=== PATIENT | male | born 1950 | race Caucasian/White ===

== ENCOUNTER 2016-11-04 20:44 | Emergency (ER) | payer MEDICARE ==
[~2016-11-04] VITALS: Ht 193 cm; Wt 72.6 kg
--- NOTE | 2016-11-04 21:25 | Emergency Room Report ---
History of Present Illness General Chief Complaint: Lower Extremity Injury Source: Patient, Medical Record Present Illness HPI Patient is a 66-year-old male who presented after a fall. The patient was reported increased pain and swelling to his right knee. Patient stated that he felt a pop and subsequently was unable to ambulate Patient fell onto his right knee after slipping. He denied loss of consciousness. Allergies: Coded Allergies: No Known Allergies (Unverified , 11/04/16) Patient History Past Medical History: see triage record Reviewed Nursing Documentation: PMH: Agreed, PSxH: Agreed Nursing Documentation-PMH Past Medical History: No History, Except For Review of Systems All Other Systems: negative except mentioned in HPI Physical Exam Vital Signs Date Time Temp Pulse Resp B/P Pulse Ox O2 Delivery O2 Flow Rate FiO2 11/04/16 20:40 98.4 88 16 169/98 100 Room Air General Appearance: well appearing, no apparent distress, alert, GCS 15, thin Head: normocephalic, atraumatic ENT: hearing grossly normal, normal voice Neck: full range of motion, supple Respiratory: no respiratory distress, speaking full sentences Cardiovascular #1: normal inspection, normal peripheral pulses, regular rate, rhythm Gastrointestinal: normal inspection, normal bowel sounds, soft Musculoskeletal: normal inspection, back normal, digits/nails normal, normal range of motion, no calf tenderness Neurologic: normal inspection, alert, oriented x3, responsive, pairer odds III-XII nml as tested, other - decreased ROM to right knee, laxity Psychiatric: mood/affect normal Skin: no rash, other - soft tissue swelling Medical Decision Making Diagnostic Impression: Primary Impression: Patellar fracture Additional Impression: Fall ER Course Patient presented for a fall. Differential diagnosis included wasn't limited to the plateau fracture, patellar tendon rupture, Knee dislocation and among others. X-ray imaging of the right knee was ordered to rule out patellar tendon injury and fracture. The patient given pain medications.X-ray imaging 2 views of the right knee showed a comminuted patellar fracture. The patient placed in a knee mobilizer. He is advised followup with Dr. Bautista. The patient was advised that he needs to call the physician's office Last Vital Signs Date Time Temp Pulse Resp B/P Pulse Ox O2 Delivery O2 Flow Rate FiO2 11/04/16 20:40 98.4 88 16 169/98 100 Room Air Status: improved Disposition: HOME, SELF-CARE Condition: Stable Kit [place] Nov 04, 2016 21:24
[2016-11-04] MEDS ORDERED: Norco 5mg/325mg tab ORAL ONE (21:30)
[2016-11-04] MEDS ORDERED: PERCOCET 5-3251 EACH ORAL (22:07)
[2016-11-04] MEDS ORDERED: IBUPROFEN600 MG ORAL (22:07)
[2016-11-04 22:54] VITALS: BP 156/90
--- NOTE | 2016-11-06 11:46 | Diagnostic Imaging Report ---
Indication: Right knee pain Technique: Right knee 2 views Comparison: None Findings: There is a comminuted patellar fracture with approximately 2 cm separation. Adjacent soft tissue swelling is noted. Impression: Acute comminuted patellar fracture with separation.
== END 2016-11-04 22:25 | disposition home or self-care (01) ==
LOC: EDBD 20:44 → EMR 21:26
DX: S82.041A Displaced comminuted fracture of right patella, initial encounter for closed fracture (principal); W01.0XXA Fall on same level from slipping, tripping and stumbling without subsequent striking against object, initial encounter; Y92.9 Unspecified place or not applicable
CPT/HCPCS: 99283

== ENCOUNTER → 2016-11-10 | Outpatient (CLI) | payer MEDICARE ==
[~2016-11-10] MED LIST: IBUPROFEN600 MG ORAL; PERCOCET 5-3251 EACH ORAL
--- NOTE | 2016-11-10 17:26 | Diagnostic Imaging Report ---
Indication: COUGH Technique: 2 views of the chest Comparison: none. Findings: Lungs and pleural spaces are clear. Heart size is normal. Bones are unremarkable.. Impression: No acute process
== END | disposition home or self-care (01) ==
LOC: RAD 12:27
DX: R05 Cough (principal)
CPT/HCPCS: 71020